=== PATIENT | male | born 2000 | race Caucasian/White ===

== ENCOUNTER 2025-02-08 22:51 | Emergency (ER) | payer OTHER, SELFPAY ==
[2025-02-08 22:59] VITALS: BP 124/76; PULSE 84; RESP 17; TEMP 36.6; O2SAT 97; BMI 23.1
--- NOTE | 2025-02-09 01:54 | PC.NURSE ---
Pt states that he has seen the community health navigator for this previously, but was advised if the cyst popped then to be seen and treated. Pt reports that drainage looked like cottage cheese.
--- NOTE | 2025-02-09 03:14 | ED_ITS ---
HPI - Skin/Abscess/Foreign Bdy General Chief complaint: Skin/Abscess/Foreign Body Stated complaint: Left scrotal cyst popped Time Seen by Provider: 02/09/25 02:18 Source: patient Mode of arrival: Ambulatory History of Present Illness HPI narrative: Otherwise healthy 24-year-old young man has what appears to be 3 inclusion cysts over his scrotum. Apparently was seen by state fire marshal in told come to the emergency department if any of these ever ruptured. This evening 1 of them did open up released the underlying sebum with no signs of infection and no continued drainage. No other complaints or concerns. Because he had been told by the state fire marshal to seek care if any of these cysts ruptured he is presenting today. Related Data Allergies Allergy/AdvReac Type Severity Reaction Status Date / Time No Known Drug Allergies Allergy Verified 02/08/25 23:00 Review of Systems Review of Systems Narrative: Pertinent positive and negative findings as per HPI Patient History Social History Smoking Status: Never smoker Smoking Status: Never smoker Exam Initial Vital Signs Initial Vital Signs: Vital Signs Temperature 97.8 F 02/08/25 22:59 Pulse Rate 84 02/08/25 22:59 Respiratory Rate 17 02/08/25 22:59 Blood Pressure 124/76 02/08/25 22:59 Pulse Oximetry 97 02/08/25 22:59 Oxygen Delivery Method Room Air 02/08/25 22:59 General: Alert appropriate in no acute distress Respiratory: Able to speak in full sentences, no obvious respiratory distress Skin: No obvious rashes, warm and dry Neurologic: Grossly intact no obvious asymmetries or abnormalities Psych: appropriate insight and affect, cooperative Genitals: Penis is healthy appearing with no abnormalities or discharge. Scrotum has 2 small inclusion cysts up near the base of the penis and a larger cyst with a wider base that is down your the base of the left testicle. At this is the 1 that has ruptured. It appears to have no remaining debris, no evidence of infection, no purulent discharge. No other genital concerns on exam Course Vital Signs Vital signs: Vital Signs - 8 hr 02/08/25 22:59 Temperature 97.8 F Pulse Rate 84 Respiratory Rate 17 Blood Pressure 124/76 Pulse Oximetry 97 Oxygen Delivery Method Room Air MDM - Skin/Abscess/Foreign Bdy MDM Narrative Medical decision making narrative: 24-year-old male has been previously instructed by his state fire marshal who come to the emergency department if any of the inclusion cysts, there were 3, over his scrotum were to rupture. One has seemingly ruptured appears to be healing nicely, the debris has been expelled, there is no purulence no sign of infection no deeper concern. Remainder of genital exam is entirely unremarkable and no evidence of deeper abscess, STI, no concern for Aguila's gangrene. Reassurance is given and patient is safe for discharge Discharge Plan Departure Patient Disposition: Home Clinical Impression: Epithelial inclusion cyst Activity Restrictions/Additional Instructions: Thank you for coming in to Each of the 3 areas on your scrotum appear to be benign simple inclusion cyst. This is where follicle typically gets clogged and the oil produced in the follicle to help keep your skin soft continues to collect causing that white little rui that you can see. Sometimes these we will spontaneously broke open. The 1 in the lower portion of your scrotum appears to have done this. There is no evidence that this is an infection, an abscess, has any deeper concern with your testicles or penis. This does not appear to be the sexually transmitted infection. You do not need antibiotics. Likely this will heal and you will have a small skin tag at the area. You could choose to have this surgically removed at some point but it is not going to cause any harm or difficulty If you find that you are getting worse or develop any new symptoms, please feel free to return to the emergency department for further evaluation. Stand Alone Forms: Patient Portal/API
[2025-02-09 03:26] VITALS: BP 131/80; PULSE 71; RESP 15; O2SAT 98
== END 2025-02-09 03:26 | disposition home or self-care (01) ==
PROVIDERS: Emergency Provider Emergency Medicine
DX: L72.0 Epidermal cyst (principal)
CPT/HCPCS: 99281